=== PATIENT | female | born 1975 | race Caucasian/White ===

== ENCOUNTER 2023-03-19 11:49 | Emergency (ER) | payer OTHER, SELFPAY ==
[2023-03-19 11:57] VITALS: BP 161/100
[2023-03-19 13:57] VITALS: BP 138/81
[2023-03-19 14:00] VITALS: BP 123/84
--- NOTE | 2023-03-19 14:01 | ED.GENMED ---
History of Present Illness
General
Chief Complaint: Fall
Source: patient
Exam Limitations: none
Time Seen by Provider: 03/19/23 13:22
Nursing documentation reviewed up to this point in time: agreed with
Travel History
Have you had any contact with someone who has COVID-19?: No
Do you have any symptoms of coronavirus? Fever > 100 degrees, chills, cough, shortness of breath, sore throat, loss of taste or smell, muscle aches, or headache?: No
History of Present Illness
History of Present Illness:
47 Y/O F h/o GERD
admits to alcohol use but not daily
says she had a mechanical fall down approx 8 steps 6 days ago while carrying a dog gate. her slipper got caught and she fell quicly and landed on her belly. she did strike her head but had no LOC
she was able to get up, had headache, neck pain, b/l rib/flank pain
went to urgent care and was sent to [facility]
she was seen in triage and had orders in for imaging, thinks she only had xrays but left without any other testing vecause it was a long wait
went to PCP the next day and had order for CT head which was neg
she has been doing better with all areas except left flank
she has pretty bad pain with breathing/movement
she has not taken anything for pain
no hematuria,k fever, cp,s jamey
no thinners
Phy Exam
Physical Exam
Physical Exam:
GENERAL: Alert , mildly anxious
HEAD: NCAT
NECK: no midline tenderness, active ROM intact, no paraspinal muscle tenderness;
EYE: pupils equal and reactive, EOMs intact.
ENT: o/p clr, mmm. no hemotympanum
CARDIAC: Regular rate and rhythm, no edema
CHEST WALL: left posterior lower ribs tender
no bruising
cva area left mild tenderness;
LUNGS: Clear breath sounds bilaterally, no acute respiratory distress, no wheezes/rales/rhonchi
ABDOMEN: Soft, mild LUQ tendneress, normal bowel soudns
NEUROLOGICAL: Alert and oriented, no focal neuro deficits, CN intact, 5/5 strength, sensation intact
SKIN: Warm and dry,
MUSCULOSKELETAL: No edema, well perfused.
PSYCH: Normal and appropriate interaction.
Course
Orders/Labs/Results
Orders:
Orders
03/19/23 13:47
Cardiac Monitoring- Treatment ONCE
Test Result ONCE
03/19/23 13:48
CT Chest/abd/pel W Iv Cont Urgent
Reason For Exam: fall down 10 steps, left post rib pain
Acetaminophen [Tylenol] 650 mg PO NOW STA
03/19/23 13:54
Complete Blood Count/With Diff Urgent
Comprehensive Metabolic Panel Urgent
HCG, Serum Qualitative Screen Urgent
Abnormal Lab Results
03/19/23
13:54
MCH 31.5 H pg
(27.0-31.0)
Absolute Monos (auto) 0.7 H 10^3/uL
(0.1-0.6)
Sodium 133 L mmol/L
(135-145)
BUN 6 L mg/dl
(7-17)
Creatinine 0.5 L mg/dL
(0.6-1.0)
ALT 39 H U/L
(0-35)
03/19/23 13:54
03/19/23 13:54
Vital Signs
Initial and Last Documented VS:
Initial Vital Signs
Temp Pulse Resp BP Pulse Ox
97.8 F 119 22 161/100 96
03/19/23 11:57 03/19/23 11:57 03/19/23 11:57 03/19/23 11:57 03/19/23 11:57
Last Documented Vital Signs
Temp Pulse Resp BP Pulse Ox
97.8 F 90 18 101/57 96
03/19/23 11:57 03/19/23 17:19 03/19/23 14:00 03/19/23 17:19 03/19/23 11:57
MDM/Problems Addressed
Differential Diagnosis Includes:
rib pain, flank injury, msk pain
MDM/Problems Addressed:
47 y/o F with fall several days ago down several steps
having ongoing left flank/back pain worse with breathing
had head ct outpatient already
no hematuria
on eam pt was initially tachycardic and uncomfortable/anxious but tachy improved
she had tenderness to left lower ribs cva region
slight LUQ tendneress
no bruising
lungs clera
cts neg for trauma
other findings discussed
labs stable
tylenol/nsaids
return precautions.
*Critical Care Note
Total Time (30-74mins, 75-104mins- exclusive of procedures): Not Applicable
ED Attending Note
-
Portions of this chart may have been created with voice recognition software.� Occasional wrong word or��sound alike� substitutions may have occurred due to the inherent limitations of voice recognition software.
Discharge Plan
Departure
Patient Disposition: Home (Routine Discharge)
Date of Disposition: 03/19/23
Time of Disposition: 17:10
Patient with high blood pressure during this ER visit?: No
Condition: Fair
Covid-19: Not Applicable
Discharge Problem:
Contusion
Instructions: Contusion (DC)
Referrals:
Ivette Little MD [Family Provider] - Follow up in 2-3 days
Activity Restrictions/Additional Instructions:
YOU HAVE NO SIGN OF ANY INTERNAL INJURIES FROM YOUR FALL
YOU HAVE NO RIB FRACTURES.
YOU SHOULD TAKE TYLENOL OR MOTRIN FOR PAIN
ICE OFF AND ON
MAKE SURE TO TAKE DEEP BREATHS TO AVOID PNEUMONIA
FOLLOW UP WITH YOUR DOCTOR
RETURN FOR ANY CONCERNS
Interventions
Interventions:
*Risk Screen - Suicide Last Done: 03/19/23 17:19
*General Assessment Last Done: 03/19/23 14:23
*Neglect/Abuse Screening Last Done: 03/19/23 14:23
*ED COVID-19 Vaccine History Last Done: 03/19/23 11:58
*Nursing Disposition Last Done: 03/19/23 17:19
ED-Musculoskeletal Assessment Last Done: 03/19/23 13:30
ED- Neurological Assessment Last Done: 03/19/23 13:30
ED-Skin Assessment Last Done: 03/19/23 13:30
Discharge Date and Time
Discharge Date/Time: 03/19/23 17:20
[2023-03-19 14:02] LABS: % Basophils 0.5 % (0-2); % Eosinophils 1.1 % (0-6); % Immature Granulocytes 0.3 % (0-0.5); % Lymphocytes 29.7 % (20.5-51.1); % Neutrophils 60.4 % (42.2-75.2); Absolute Eosinophils 0.1 10^3/uL (0-0.7); Absolute Lymphocytes 2.6 10^3/uL (1.2-3.4); Absolute Monocytes 0.7 10^3/uL (0.1-0.6); Absolute Neutrophils 5.3 10^3/uL (1.4-6.5); Hematocrit 41.9 % (37.0-47.0); Hemoglobin 15.1 g/dL (12.0-16.0); Mean Corpuscular Hgb 31.5 pg (27.0-31.0); Mean Corpuscular Volume 87.5 fL (81.0-99.0); Mean Platelet Volume 8.5 fL (7.4-10.4); Nucleated Red Blood Cells % 0 %; Platelet Count 329 10^3/uL (130-400); Red Blood Cell Count 4.79 10^6/uL (4.20-5.40); Red Cell Dist. Width 12.2 % (11.5-14.5); White Blood Cell Count 8.7 10^3/uL (4.8-10.8)
[2023-03-19] MEDS: TYLENOL 650 MG PO (14:02)
[2023-03-19 14:19] LABS: HCG, Serum Qualitative Screen Negative
[2023-03-19 14:23] LABS: ALT (SGPT) 39 U/L (0-35); AST (SGOT) 33 U/L (14-36); Albumin 4.8 g/dl (3.5-5.0); Alkaline Phosphatase 65 U/L (38-126); Blood Urea Nitrogen 6 mg/dl (7-17); Calcium 10.1 mg/dl (8.4-10.2); Carbon Dioxide 27 mmol/L (22-30); Chloride 98 mmol/L (98-107); Glucose 98 mg/dl (70-99); Potassium 3.7 mmol/L (3.5-5.1); Sodium 133 mmol/L (135-145); Total Bilirubin 0.5 mg/dl (0.2-1.3); Total Protein 7.6 g/dl (6.3-8.2); eGFR > 60.00
[2023-03-19 16:31] VITALS: BP 101/57
[2023-03-19 17:19] VITALS: BP 101/57
== END 2023-03-19 17:20 | disposition home or self-care (01) ==
LOC: EMR 11:49
PROVIDERS: Physician Assistant; EMERGENCY PHYSICIAN Emergency Medicine; FAMILY PHYSICIAN Internal Medicine
DX: S20.212A Contusion of left front wall of thorax, initial encounter (principal); W10.9XXA Fall (on) (from) unspecified stairs and steps, initial encounter; K21.9 Gastro-esophageal reflux disease without esophagitis
CPT/HCPCS: 99285; 71260; 74177; 80053; 84703; 85025; Q9967

== ENCOUNTER → 2023-11-28 12:17 | Outpatient (REF) | payer OTHER, SELFPAY | LOC: EMG 12:17 | PROVIDERS: ATTENDING PHYSICIAN Orthopaedic Surgery Hand Surgery; FAMILY PHYSICIAN Internal Medicine | DX: M65.331 Trigger finger, right middle finger (principal); M79.602 Pain in left arm | CPT/HCPCS: 95886; 95911 ==